=== PATIENT | male | born 1940 | race Caucasian/White ===

== ENCOUNTER → 2016-12-29 | Outpatient (CLI) | payer MEDICARE ==
[~2016-12-29] MED LIST: ASPIRIN EC81 MG PO; ASPIRIN325 MG PO; COZAAR50 MG PO; FLONASE 50 MCG/16 GM NOSE; HYGROTON25 MG PO; MIRAPEX1 MG PO; TOPROL XL50 MG PO; ULTRAM50 MG PO; VIAGRA100 MG PO; ZOCOR40 MG PO
== END | disposition disaster alternative care site (69) ==
LOC: GRAD 12-28 10:00
DX: M54.40 Lumbago with sciatica, unspecified side (principal); M48.06 Spinal stenosis, lumbar region

== ENCOUNTER → 2017-01-04 | Day surgery (SDC) | payer MEDICARE ==
[~2017-01-04] VITALS: Ht 170.2 cm; Wt 90.5 kg
== END ==
LOC: GPOC 16:00 → GSDC 16:46
PROC: 3E0R33Z Introduction of Anti-inflammatory into Spinal Canal, Percutaneous Approach (ICD-10-PCS; principal; 2017-01-04)
PROC: 3E0R3BZ Introduction of Anesthetic Agent into Spinal Canal, Percutaneous Approach (ICD-10-PCS; 2017-01-04)
DX: M54.5 Low back pain (principal); M48.06 Spinal stenosis, lumbar region
CPT/HCPCS: J1030; J1040